=== PATIENT | male | born 1940 | race Two or more races ===

== ENCOUNTER → 2022-11-20 | Emergency (ER) | payer OTHER ==
[~2022-11-20] VITALS: Ht 162.6 cm; Wt 68.0 kg
[~2022-11-20] MED LIST: ASPirin 81 mg TAB PO ONE; ASPirin 81 mg TAB PO SCH; InsuLIN REG 1unit/0.01ml Soln (100units/ml) IV ONE; LISINOPRIL 10 MG TAB PO SCH; METOPROLOL TARTRATE 25 MG TAB PO SCH; MORPHINE SULFATE INJ 2 MG/ml SYRG IV PRN; NITROGLYCERIN 0.4 MG SL TAB SL PRN; SODIUM CHLORIDE 0.9% 500 ML IV ONE; hydrALAZINE HCL 20 MG/ML VL IV ONE; hydrALAZINE HCL 20 MG/ML VL IV PRN
[2022-11-20 13:31] LABS: Basophils # (auto) 0.1 10 ^3/uL (0-0.2); Eosinophils # (auto) 0 10 ^3/uL (0-0.8); Eosinophils % (auto) 0.6 % (0.0-7.0); Hematocrit 47.2 % (41.0-53.0); Hemoglobin 16.1 g/dL (13.5-17.5); Lymphocytes % (auto) 15.4 % (10.0-50.0); Mean Corpuscular Hemoglobin 31.7 pg (28.0-32.0); Monocytes # (auto) 0.6 10 ^3/uL (0-1.3); Neutrophils # (auto) 4.9 10 ^3/uL (1.6-8.6); Nucleated Red Blood Cells % 0.1 %; Red Blood Cells 5.07 10^6/uL (4.5-5.90); Red Cell Distribution Width 13.5 % (11.8-14.3); White Blood Cell 6.6 10^3/uL (4.4-10.8)
[2022-11-20 14:01] LABS: Potassium 4.8 mmol/L (3.5-5.1)
[2022-11-20 14:08] LABS: Albumin 3.3 g/dL (3.4-5.0); BUN/Creatinine Ratio 21.7 (10.0-20.0); Bilirubin, Total 0.8 mg/dL (0.2-1.0); Calcium 9.5 mg/dL (8.5-10.1); Total Protein 6.6 g/dL (6.4-8.2)
[2022-11-20 14:50] LABS: Urine Bacteria NONE SEEN /hpf (None Seen); Urine Blood TRACE /uL (Negative); Urine Specific Gravity 1.032 (1.001-1.035); Urine WBC 1 /hpf (0 - 3)
[2022-11-20 15:34] LABS: Magnesium 1.9 mg/dL (1.6-2.6)
[2022-11-20 21:02] VITALS: BP 160/84
== END | disposition short-term general hospital (02) ==
LOC: EDBD 12:11 → ER 12:11
DX: R26.2 Difficulty in walking, not elsewhere classified (principal); R77.8 Other specified abnormalities of plasma proteins; E11.65 Type 2 diabetes mellitus with hyperglycemia; R53.1 Weakness; Z20.822 Contact with and (suspected) exposure to COVID-19
CPT/HCPCS: 36415; 71045; 80053; 80061; 81001; 82010; 82550; 82962; 83036; 83605; 83735; 83880; 84443; 84484; 85025; 87426; 93005; 93306; 96361; 96374; 96375; 99285; J0360; J1815; J7040